=== PATIENT | female | born 1995 ===

== ENCOUNTER 2016-07-20 23:15 | Observation (INO) | payer OTHER ==
[2016-05-07 09:22] VITALS: O2SAT 99
[2016-07-21 00:11] VITALS: BP 113/61; PULSE 90; RESP 20; TEMP 97.8
[2016-07-21] MEDS ORDERED: SODIUM CHLORIDE 0.9% 1000ML 1,000 ML IV ONE (00:29)
[2016-07-21] MEDS ORDERED: SODIUM CHLORIDE 0.9% FLUSH 10 ML SOL IV PRN (00:30)
[2016-07-21 01:01] LABS: APPEARANCE,URINE Clear; BILIRUBIN,URINE NEGATIVE (NEGATIVE); COLOR,URINE Yellow; GLUCOSE, URINE (UA) NEGATIVE (NEGATIVE); KETONES,URINE NEGATIVE (NEGATIVE); LEUKOCYTE ESTERASE ,URINE NEGATIVE (NEGATIVE); NITRATE,URINE NEGATIVE (NEGATIVE); OCCULT BLOOD,URINE TRACE INTACT (NEG-TRACE); UROBILINOGEN,URINE 0.2 (0.2-1.0 EU)
[2016-07-21 01:12] LABS: WBC,URINE 0-2 (0-5AV/HPF)
== END 2016-07-21 01:40 | disposition home or self-care (01) | DRG 780 ==
LOC: OB 23:15
PROVIDERS: ADMIT Family Medicine; ATTEND Family Medicine
DX: O47.1 False labor at or after 37 completed weeks of gestation (principal); Z3A.36 36 weeks gestation of pregnancy
CPT/HCPCS: 59025; 81001; 84112

== ENCOUNTER 2016-07-27 09:08 | Observation (INO) | payer OTHER ==
[2016-05-07 09:22] VITALS: O2SAT 99
[2016-07-27] MEDS: SODIUM CHLORIDE 0.9% FLUSH 10 ML SOL IV PRN ×3 (09:30→11:25)
[2016-07-27 09:35] VITALS: RESP 20
[2016-07-27] MEDS ORDERED: SODIUM CHLORIDE 0.9% 500 ML 500 ML IV ONE ×2 (09:36→11:12)
[2016-07-27 10:04] LABS: APPEARANCE,URINE Cloudy; BILIRUBIN,URINE NEGATIVE (NEGATIVE); COLOR,URINE Yellow; GLUCOSE, URINE (UA) NEGATIVE (NEGATIVE); KETONES,URINE NEGATIVE (NEGATIVE); LEUKOCYTE ESTERASE ,URINE 1+ (NEGATIVE); NITRATE,URINE NEGATIVE (NEGATIVE); OCCULT BLOOD,URINE 3+ (NEG-TRACE); PH,URINE 8.5; UROBILINOGEN,URINE 0.2 (0.2-1.0 EU)
[2016-07-27 10:25] LABS: WBC,URINE 0-4 (0-5AV/HPF)
[2016-07-27] MEDS ORDERED: MEPIVACAINE HCL 1% MPF 30 ML SOL INFIL PRN (10:26)
[2016-07-27] MEDS ORDERED: CARBOPROST 250 MCG/ML SOL IM PRN (10:26)
[2016-07-27] MEDS ORDERED: LACTATED RINGERS 1,000 ML IV PRN (10:26)
[2016-07-27] MEDS ORDERED: FENTANYL CITRATE 50 MCG/ML SOL IV PRN (10:26)
[2016-07-27] MEDS ORDERED: METHYLERGONOVINE MALEATE 0.2 MG/ML SOL IM PRN (10:26)
[2016-07-27] MEDS ORDERED: OXYTOCIN 10000 MU/ML SOL IM PRN (10:26)
[2016-07-27] MEDS ORDERED: SODIUM CHLORIDE 0.9% FLUSH 10 ML SOL IV SCH (10:30)
[2016-07-27] MEDS ORDERED: AMOXICILLIN 125/5 ML BOTTLE PO SCH (11:30)
[2016-07-27] MEDS ORDERED: AMOXICILLIN 125/5 ML BOTTLE ONE (11:30)
[2016-07-27 11:45] VITALS: TEMP 97
[2016-07-27 11:46] VITALS: BP 102/59; PULSE 83
== END 2016-07-27 12:45 | disposition home or self-care (01) | DRG 780 ==
LOC: UNDOADMOB 09:08 → OB 09:08
PROVIDERS: ADMIT Family Medicine; ATTEND Family Medicine
DX: O47.1 False labor at or after 37 completed weeks of gestation (principal); Z3A.36 36 weeks gestation of pregnancy
CPT/HCPCS: 59025; 81001

== ENCOUNTER 2016-08-10 11:15 | Inpatient (IN) | payer OTHER ==
[2016-08-10] MEDS: SODIUM CHLORIDE 0.9% FLUSH 10 ML SOL IV PRN ×2 (11:25→12:00)
[2016-08-10] MEDS ORDERED: OXYTOCIN 10000 MU/ML SOL IM PRN (11:41)
[2016-08-10] MEDS ORDERED: CARBOPROST 250 MCG/ML SOL IM PRN (11:41)
[2016-08-10] MEDS ORDERED: METHYLERGONOVINE MALEATE 0.2 MG/ML SOL IM PRN (11:41)
[2016-08-10] MEDS ORDERED: LACTATED RINGERS 1,000 ML IV PRN (11:41)
[2016-08-10] MEDS ORDERED: FENTANYL 100MCG/2ML SOL IV PRN (11:41)
[2016-08-10] MEDS ORDERED: MEPIVACAINE HCL 1% MPF 30 ML SOL INFIL PRN (11:41)
[2016-08-10] MEDS ORDERED: FENTANYL 100MCG/2ML SOL ONE (11:56)
[2016-08-10 11:58] LABS: BASOPHILS % (AUTO) 1 % (0-3); EOSINOPHILS % (AUTO) 1 % (0-9); HEMATOCRIT 37 % (35-47); MEAN CORPUSCULAR HGB CONC 36.4 gm/dl (32.0-36.0); MEAN CORPUSCULAR VOLUME 87 fL (81-99); MONOCYTES % (AUTO) 3.6 % (0-12); NEUTROPHILS % (AUTO) 81.8 % (37-80)
[2016-08-10] MEDS: SODIUM CHLORIDE 0.9% FLUSH 10 ML SOL IV SCH ×2 (12:01→19:28)
[2016-08-10] MEDS ORDERED: DIPHENHYDRAMINE 50 MG/ML SOL IV PRN (18:20)
[2016-08-10] MEDS ORDERED: NALOXONE HYDROCHLORIDE 0.4 MG/ML SOL IV PRN (18:20)
[2016-08-10] MEDS ORDERED: EPHEDRINE SULFATE 50 MG/ML SOL IV PRN (18:20)
[2016-08-10] MEDS ORDERED: NALBUPHINE HCL 20 MG/ML SOL IV PRN (18:20)
[2016-08-10 18:21] LABS: APPEARANCE,URINE Clear; BILIRUBIN,URINE NEGATIVE (NEGATIVE); COLOR,URINE Yellow; GLUCOSE, URINE (UA) NEGATIVE (NEGATIVE); KETONES,URINE NEGATIVE (NEGATIVE); LEUKOCYTE ESTERASE ,URINE NEGATIVE (NEGATIVE); NITRATE,URINE NEGATIVE (NEGATIVE); OCCULT BLOOD,URINE 2+ (NEG-TRACE)
[2016-08-10] MEDS ORDERED: LACTATED RINGERS 1,000 ML IV SCH (18:30)
[2016-08-10 18:55] LABS: RBC,URINE 15-20 (0-3AV/HPF); WBC,URINE 0-2 (0-5AV/HPF)
[2016-08-10] MEDS: LACTATED RINGERS 1,000 ML IV SCH ×2 (19:28→19:55)
[2016-08-10] MEDS ORDERED: LIDOCAINE HCL 2% MPF SOL ONE (19:53)
[2016-08-10] MEDS ORDERED: ROPIVACAINE HYDROCHLORIDE 5 MG/ML SOL ONE (20:26)
[2016-08-10] MEDS ORDERED: FENTANYL 250 MCG/ 5ML SOL ONE (20:26)
[2016-08-10] MEDS ORDERED: BISACODYL 10 MG SUP PR PRN (23:55)
[2016-08-10] MEDS ORDERED: FLEET ENEMA PR PRN (23:55)
[2016-08-10] MEDS ORDERED: WITCH HAZEL 1 EA PAD TOP PRN (23:55)
[2016-08-10] MEDS ORDERED: TEMAZEPAM 15MG 15 MG CAP PO PRN (23:55)
[2016-08-10] MEDS ORDERED: BENZOCAINE/MENTHOL 1 SPR TOP PRN (23:55)
[2016-08-10] MEDS ORDERED: METHYLERGONOVINE MALEATE 0.2 MG TAB PO PRN (23:55)
[2016-08-11] MEDS: IBUPROFEN 600 MG TAB PO PRN ×3 (02:27→18:56)
[2016-08-11] MEDS: DOCUSATE SODIUM 100 MG SGL PO SCH ×3 (08:37→19:43)
[2016-08-11] MEDS: APAP/HYDROCODONE 325/5 TAB PO PRN ×2 (13:54→19:43)
[2016-08-11 16:07] VITALS: O2SAT 97
[2016-08-12] MEDS: DOCUSATE SODIUM 100 MG SGL PO SCH ×2 (01:39→08:27)
[2016-08-12] MEDS: APAP/HYDROCODONE 325/5 TAB PO PRN ×2 (07:03→14:33)
[2016-08-12 08:59] VITALS: RESP 16
[2016-08-12] MEDS: IBUPROFEN 600 MG TAB PO PRN (11:36)
[2016-08-12] MEDS ORDERED: PNEUMOCOCCAL VACCINE 0.5 ML SOL IM ONE ×2 (13:13→13:57)
[2016-08-12 16:01] VITALS: BP 110/68; PULSE 75; TEMP 98
== END 2016-08-12 16:38 | disposition home or self-care (01) | DRG 775 ==
LOC: OB 11:15 → OBSVTOIN 11:15
PROVIDERS: ADMIT Family Medicine; ATTEND Family Medicine
PROC: 10907ZC Drainage of Amniotic Fluid, Therapeutic from Products of Conception, Via Natural or Artificial Opening (ICD-10-PCS; principal; 2016-08-10)
PROC: 10E0XZZ Delivery of Products of Conception, External Approach (ICD-10-PCS; 2016-08-10)
PROC: 0HQ9XZZ Repair Perineum Skin, External Approach (ICD-10-PCS; 2016-08-10)
DX: O76 Abnormality in fetal heart rate and rhythm complicating labor and delivery (principal); O69.1XX0 Labor and delivery complicated by cord around neck, with compression, not applicable or unspecified; O71.82 Other specified trauma to perineum and vulva; Z3A.38 38 weeks gestation of pregnancy; Z37.0 Single live birth
CPT/HCPCS: 36415; 59025; 81001; 85018; 85025; 90732; 94762; J0670; J2590; J2795; J3010

== ENCOUNTER 2016-10-02 15:23 | Emergency (ER) | payer MEDICAID, OTHER ==
[2016-10-02 16:07] VITALS: BP 110/77; PULSE 79; RESP 16; TEMP 98.6; O2SAT 98
[2016-10-02] MEDS ORDERED: ONDANSETRON HCL 4 MG/2 ML SOL IV ONE (16:07)
[2016-10-02] MEDS ORDERED: KETOROLAC TROMETHAMINE 30 MG/ML SOL IV ONE (16:07)
[2016-10-02 16:08] LABS: APPEARANCE,URINE Slightly Cloudy; BILIRUBIN,URINE NEGATIVE (NEGATIVE); COLOR,URINE Yellow; GLUCOSE, URINE (UA) NEGATIVE (NEGATIVE); KETONES,URINE NEGATIVE (NEGATIVE); LEUKOCYTE ESTERASE ,URINE TRACE (NEGATIVE); NITRATE,URINE NEGATIVE (NEGATIVE); OCCULT BLOOD,URINE NEGATIVE (NEG-TRACE)
[2016-10-02] MEDS ORDERED: KETOROLAC TROMETHAMINE 30 MG/ML SOL ONE (16:14)
[2016-10-02] MEDS ORDERED: ONDANSETRON HCL 4 MG/2 ML SOL ONE (16:14)
[2016-10-02 16:19] LABS: BASOPHILS % (AUTO) 1 % (0-3); EOSINOPHILS % (AUTO) 7 % (0-9); HEMATOCRIT 37 % (35-47); MEAN CORPUSCULAR HGB CONC 35.9 gm/dl (32.0-36.0); MEAN CORPUSCULAR VOLUME 84 fL (81-99); MONOCYTES % (AUTO) 5.8 % (0-12); NEUTROPHILS % (AUTO) 51.7 % (37-80)
[2016-10-02 16:26] LABS: POTASSIUM 3.5 mMol/L (3.5-5.1)
[2016-10-02 16:28] LABS: RBC,URINE 0-1 (0-3AV/HPF)
== END 2016-10-02 18:13 | disposition home or self-care (01) | DRG 694 ==
LOC: ED 15:23
DX: N13.2 Hydronephrosis with renal and ureteral calculous obstruction (principal)
CPT/HCPCS: 74176; 80048; 81001; 84703; 85025; 96374; 96375; 99283; 99284; J1885; J2405

== ENCOUNTER 2016-10-10 05:24 | Emergency (ER) | payer SELFPAY ==
[2016-10-10 05:33] VITALS: RESP 16; TEMP 96.4; O2SAT 100
[2016-10-10] MEDS ORDERED: ONDANSETRON HCL 4 MG/2 ML SOL IV ONE (05:33)
[2016-10-10] MEDS ORDERED: KETOROLAC TROMETHAMINE 30 MG/ML SOL IV ONE (05:33)
[2016-10-10] MEDS ORDERED: MORPHINE SULFATE 10 MG/ML SOL IV ONE (05:33)
[2016-10-10] MEDS ORDERED: SODIUM CHLORIDE 0.9% 1000ML 1,000 ML IV SCH ×2 (05:33→06:50)
[2016-10-10] MEDS ORDERED: KETOROLAC TROMETHAMINE 30 MG/ML SOL ONE (05:34)
[2016-10-10] MEDS ORDERED: ONDANSETRON HCL 4 MG/2 ML SOL ONE (05:34)
[2016-10-10] MEDS ORDERED: MORPHINE SULFATE 10 MG/ML SOL ONE (05:34)
[2016-10-10 07:05] VITALS: BP 84/63; PULSE 60
== END 2016-10-10 07:58 | disposition home or self-care (01) | DRG 392 ==
LOC: ED 05:24
DX: R10.30 Lower abdominal pain, unspecified (principal); Z87.442 Personal history of urinary calculi
CPT/HCPCS: 96365; 96366; 96374; 96375; 99283; 99285; J1885; J2270; J2405

== ENCOUNTER 2016-10-14 23:10 | Emergency (ER) | payer SELFPAY ==
[2016-10-14 23:37] VITALS: RESP 20; TEMP 97.7; O2SAT 99
[2016-10-15 00:39] LABS: APPEARANCE,URINE Clear; BILIRUBIN,URINE NEGATIVE (NEGATIVE); COLOR,URINE Light yellow; GLUCOSE, URINE (UA) NEGATIVE (NEGATIVE); KETONES,URINE NEGATIVE (NEGATIVE); LEUKOCYTE ESTERASE ,URINE NEGATIVE (NEGATIVE); NITRATE,URINE NEGATIVE (NEGATIVE); OCCULT BLOOD,URINE TRACE INTACT (NEG-TRACE); UROBILINOGEN,URINE 0.2 (0.2-1.0 EU)
[2016-10-15 00:42] LABS: CALCIUM 8.4 mg/dl (8.5-10.1); POTASSIUM 3.2 mMol/L (3.5-5.1)
[2016-10-15 00:44] LABS: RBC,URINE 0-3 (0-3AV/HPF); WBC,URINE 0-1 (0-5AV/HPF)
[2016-10-15] MEDS ORDERED: KETOROLAC TROMETHAMINE 30 MG/ML SOL IM ONE (00:55)
[2016-10-15] MEDS ORDERED: KETOROLAC TROMETHAMINE 30 MG/ML SOL ONE (00:56)
[2016-10-15 01:13] VITALS: BP 115/76; PULSE 56
== END 2016-10-15 01:10 | disposition home or self-care (01) | DRG 392 ==
LOC: ED 23:10
DX: R10.9 Unspecified abdominal pain (principal); N20.0 Calculus of kidney
CPT/HCPCS: 36415; 80048; 81001; 96372; 99282; J1885

== ENCOUNTER 2016-10-21 12:16 | Emergency (ER) | payer OTHER ==
[2016-10-21 12:25] VITALS: BP 110/83; PULSE 96; RESP 20; TEMP 97.8; O2SAT 98
[2016-10-21] MEDS ORDERED: IBUPROFEN 600 MG TAB ONE (12:53)
[2016-10-21] MEDS ORDERED: IBUPROFEN 600 MG TAB PO ONE (12:54)
[2016-10-21] MEDS ORDERED: BACITRACIN 500 U/GM OIN TOP ONE ×2 (13:14→13:15)
== END 2016-10-21 13:28 | disposition home or self-care (01) | DRG 923 ==
LOC: ED 12:16
DX: Z04.1 Encounter for examination and observation following transport accident (principal); R23.8 Other skin changes; V43.52XA Car driver injured in collision with other type car in traffic accident, initial encounter
CPT/HCPCS: 99283; G0390

== ENCOUNTER 2016-11-15 22:54 | Emergency (ER) | payer OTHER ==
[2016-11-15 23:09] VITALS: BP 113/75; PULSE 94; RESP 18; TEMP 98.4; O2SAT 99
== END 2016-11-15 23:42 | disposition home or self-care (01) | DRG 563 ==
LOC: ED 22:54
DX: S62.355A Nondisplaced fracture of shaft of fourth metacarpal bone, left hand, initial encounter for closed fracture (principal); S62.357A Nondisplaced fracture of shaft of fifth metacarpal bone, left hand, initial encounter for closed fracture; W50.0XXA Accidental hit or strike by another person, initial encounter; Y93.67 Activity, basketball
CPT/HCPCS: 73130; 99282; 99284

== ENCOUNTER 2016-11-23 09:31 | Outpatient (CLI) | payer OTHER ==
[2016-11-15 23:09] VITALS: O2SAT 99
== END 2016-11-23 09:32 | disposition home or self-care (01) | DRG 561 ==
LOC: CONVCARE 09:31
PROVIDERS: ATTEND Orthopaedic Surgery
DX: S62.305D Unspecified fracture of fourth metacarpal bone, left hand, subsequent encounter for fracture with routine healing (principal); S62.307D Unspecified fracture of fifth metacarpal bone, left hand, subsequent encounter for fracture with routine healing
CPT/HCPCS: 73130

== ENCOUNTER 2016-12-21 10:15 | Outpatient (CLI) | payer OTHER ==
[2016-11-15 23:09] VITALS: O2SAT 99
== END 2016-12-21 10:16 | disposition home or self-care (01) | DRG 561 ==
LOC: CONVCARE 10:15
PROVIDERS: ATTEND Orthopaedic Surgery
DX: S62.305D Unspecified fracture of fourth metacarpal bone, left hand, subsequent encounter for fracture with routine healing (principal); S62.307D Unspecified fracture of fifth metacarpal bone, left hand, subsequent encounter for fracture with routine healing
CPT/HCPCS: 73130

== ENCOUNTER 2017-01-28 21:53 | Emergency (ER) | payer OTHER ==
[2017-01-28 21:56] VITALS: O2SAT 99
[2017-01-28] MEDS ORDERED: LIDOCAINE HCL 2% (VISCOUS) 20 ML SOL MT ONE (22:38)
[2017-01-28] MEDS ORDERED: LIDOCAINE HCL 2% (VISCOUS) 20 ML SOL ONE (22:39)
[2017-01-28] MEDS ORDERED: TRAMADOL HYDROCHLORIDE 50 MG TAB PO ONE (22:40)
[2017-01-28] MEDS ORDERED: TRAMADOL HYDROCHLORIDE 50 MG TAB ONE (22:41)
[2017-01-28] MEDS ORDERED: ONDANSETRON 4 MG ODT BU ONE (23:23)
[2017-01-28] MEDS ORDERED: METRONIDAZOLE 250 MG TAB PO ONE (23:23)
[2017-01-28] MEDS ORDERED: CEFTRIAXONE 1 GM PDS IM ONE (23:23)
[2017-01-29 00:38] VITALS: BP 110/72; PULSE 100; RESP 16; TEMP 98.3
== END 2017-01-28 23:07 | disposition home or self-care (01) | DRG 159 ==
LOC: ED 21:53
DX: K08.89 Other specified disorders of teeth and supporting structures (principal)
CPT/HCPCS: 99282; 99283

== ENCOUNTER 2017-12-24 11:03 | Emergency (ER) | payer SELFPAY ==
[2017-12-24 11:17] VITALS: RESP 16
[2017-12-24] MEDS ORDERED: ONDANSETRON HCL 4 MG/2 ML SOL IV ONE (11:27)
[2017-12-24] MEDS ORDERED: SODIUM CHLORIDE 0.9% 1000ML 1,000 ML IV SCH (11:30)
[2017-12-24] MEDS ORDERED: ONDANSETRON HCL 4 MG/2 ML SOL ONE (11:39)
[2017-12-24 11:55] LABS: BILIRUBIN,TOTAL 0.4 mg/dl (0.2-1.0); CALCIUM 8.3 mg/dl (8.5-10.1); CARBON DIOXIDE 23.3 mEq/L (21-32); CREATININE 0.78 mg/dl (0.60-1.00); POTASSIUM 3.5 mMol/L (3.5-5.1); TOTAL PROTEIN 7.6 gm/dl (6.4-8.2)
[2017-12-24 11:59] LABS: BASOPHILS % (AUTO) 1 % (0-3); EOSINOPHILS % (AUTO) 2 % (0-9); HEMATOCRIT 43 % (35-47); HEMOGLOBIN 14.3 gm/dl (12.0-15.5); LYMPHOCYTES % (AUTO) 21.7 % (10-50); MEAN CORPUSCULAR HEMOGLOBIN 29.3 pg (27.0-32.0); MEAN CORPUSCULAR HGB CONC 33.2 gm/dl (32.0-36.0); MEAN CORPUSCULAR VOLUME 88 fL (81-99); MONOCYTES % (AUTO) 5.6 % (0-12); NEUTROPHILS % (AUTO) 70.1 % (37-80)
[2017-12-24 12:01] LABS: APPEARANCE,URINE Cloudy; BILIRUBIN,URINE NEGATIVE (NEGATIVE); COLOR,URINE Yellow; GLUCOSE, URINE (UA) NEGATIVE (NEGATIVE); KETONES,URINE NEGATIVE (NEGATIVE); LEUKOCYTE ESTERASE ,URINE NEGATIVE (NEGATIVE); NITRATE,URINE NEGATIVE (NEGATIVE); OCCULT BLOOD,URINE NEGATIVE (NEG-TRACE); UROBILINOGEN,URINE 0.2 (0.2-1.0 EU)
[2017-12-24 12:33] VITALS: BP 109/67; PULSE 82; TEMP 97.9; O2SAT 99
[2017-12-24 12:36] LABS: BACTERIA 2+ (< 1+); CRYSTALS NEGATIVE (0-3 AVE/HPF); RBC,URINE 0-4 (0-3AV/HPF)
[2017-12-24] MEDS ORDERED: KETOROLAC TROMETHAMINE 30 MG/ML SOL IV ONE (12:50)
[2017-12-24] MEDS ORDERED: KETOROLAC TROMETHAMINE 30 MG/ML SOL ONE (12:51)
== END 2017-12-24 13:30 | disposition home or self-care (01) | DRG 690 ==
LOC: ED 11:03
DX: N30.00 Acute cystitis without hematuria (principal); B96.20 Unspecified Escherichia coli [E. coli] as the cause of diseases classified elsewhere
CPT/HCPCS: 80053; 81001; 84703; 85025; 87077; 87088; 87186; 96365; 96374; 96375; 99283; 99284; J1885; J2405

== ENCOUNTER 2018-05-09 08:31 | Emergency (ER) | payer MEDICAID ==
[2018-05-09 08:51] VITALS: RESP 18; TEMP 97; O2SAT 98
[2018-05-09] MEDS ORDERED: CEFTRIAXONE 1 GM PDS IM ONE (08:51)
[2018-05-09] MEDS ORDERED: KETOROLAC TROMETHAMINE 30 MG/ML SOL IM ONE (08:51)
[2018-05-09] MEDS ORDERED: CEFTRIAXONE 1 GM PDS ONE (08:54)
[2018-05-09] MEDS ORDERED: LIDOCAINE HCL 1% MPF 30 SOL ONE (08:55)
[2018-05-09] MEDS ORDERED: KETOROLAC TROMETHAMINE 30 MG/ML SOL ONE (08:55)
[2018-05-09 09:50] VITALS: BP 116/80; PULSE 63
== END 2018-05-09 09:45 | disposition home or self-care (01) | DRG 159 ==
LOC: ED 08:31
DX: K02.9 Dental caries, unspecified (principal); K05.01 Acute gingivitis, non-plaque induced
CPT/HCPCS: 96372; 99282; 99283; J0696; J1885; J2001